=== PATIENT | female | born 1970 | race Caucasian/White ===

== ENCOUNTER 2017-11-26 10:18 | Day surgery (SDC) | payer BC ==
[~2017-11-26 10:18] MED LIST: TRANEXAMIC ACID 1,000 MG in DEXTROSE 5% 100 ML IVPB
[2017-11-26] MEDS: traMADol 50 MG TAB PO (11:42)
[2017-11-26] MEDS: CELECOXIB 200 MG CAP PO (11:42)
[2017-11-26] MEDS: VANCOMYCIN 1 GM (PMX) 250 ML IVPB (12:40)
[2017-11-26] MEDS ORDERED: HYDROmorphONE (0.2 MG/ML) 10ML SYG IV ×3 (13:00)
[2017-11-26] MEDS ORDERED: ONDANSETRON 4 MG INJ IV (13:00)
[2017-11-26] MEDS ORDERED: MEPERIDINE 25 MG INJ IV (13:00)
[2017-11-26] MEDS ORDERED: FENTAnyl 50 MCG/ML VIAL IV ×2 (13:00)
[2017-11-26] MEDS ORDERED: METOCLOPRAMIDE 10 MG INJ IV (13:00)
[2017-11-26] MEDS ORDERED: DIPHENHYDRAMINE 50 MG INJ IV (13:00)
[2017-11-26] MEDS ORDERED: MIDAZOLAM 1 MG/ML 2 ML INJ (13:34)
[2017-11-26] MEDS ORDERED: ROPIVACAINE 0.5 % 30 ML VIAL (13:34)
[2017-11-26] MEDS ORDERED: ROCURONIUM 50 MG INJ (14:10)
[2017-11-26] MEDS ORDERED: SUGAMMADEX SODIUM 200 MG/2 ML VIAL IV (14:10)
[2017-11-26] MEDS ORDERED: LIDOCAINE 2% (SDV) 5 ML INJ (14:10)
[2017-11-26] MEDS ORDERED: SUCCINYLCHOLINE CHLORIDE 100 MG/5 ML SYG IV (14:10)
[2017-11-26] MEDS ORDERED: PROPOFOL 20 ML (14:10)
== END 2017-11-26 16:48 | disposition home or self-care (01) ==
LOC: SDS 10:18
DX: S43.421A Sprain of right rotator cuff capsule, initial encounter (principal); M19.011 Primary osteoarthritis, right shoulder; M75.41 Impingement syndrome of right shoulder; X58.XXXA Exposure to other specified factors, initial encounter; Y93.89 Activity, other specified; Y92.89 Other specified places as the place of occurrence of the external cause; Y99.8 Other external cause status
CPT/HCPCS: 29824; 84703

== ENCOUNTER → 2018-01-21 | Outpatient (CLI) | payer BC | END | disposition home or self-care (01) | LOC: HKI 15:23 | DX: M17.12 Unilateral primary osteoarthritis, left knee (principal) | CPT/HCPCS: 73564; 73564-LT ==